=== PATIENT | female | born 1980 | race Hispanic/Latino ===

== ENCOUNTER 2023-11-18 08:20 | Day surgery (SDC) | payer OTHER ==
[~2023-11-18] VITALS: Ht 160 cm; Wt 73.9 kg
[2023-11-18] MEDS ORDERED: SODIUM CHLORIDE 0.9% 10 ML SYR ONE ×2 (08:24→09:03)
[2023-11-18] MEDS ORDERED: MELOXICAM7.5 MG PO (08:40)
[2023-11-18] MEDS ORDERED: PROVERA5 MG PO (08:40)
[2023-11-18] MEDS ORDERED: METHOCARBAMOL500 MG PO (08:41)
[2023-11-18] MEDS ORDERED: TYLENOL # 31 TA1 PO (08:42)
[2023-11-18] MEDS ORDERED: MIDAZOLAM HCL 2 MG/2 ML VIAL ONE (09:03)
[2023-11-18] MEDS ORDERED: LACTATED RINGER'S 1,000 ML IV ONE (09:09)
[2023-11-18] MEDS ORDERED: BUPIVACAINE HCL PF 0.5 % 50 MG/10 ML SDV ONE (09:35)
[2023-11-18] MEDS ORDERED: LIDOCAINE MPF 1% (10 MG/ML) 5 ML VIAL ONE (09:35)
[2023-11-18] MEDS ORDERED: TRIAMCINOLONE ACETONIDE 40 MG/ML ML ONE (09:35)
[2023-11-18 09:50] VITALS: BP 116/85
== END 2023-11-18 10:05 | disposition home or self-care (01) ==
LOC: ORM 08:20
PROVIDERS: ATTEND Student in an Organized Health Care Education/Training Program
DX: M46.1 Sacroiliitis, not elsewhere classified (principal); G89.4 Chronic pain syndrome; M54.9 Dorsalgia, unspecified
CPT/HCPCS: J3301

== ENCOUNTER 2024-06-15 07:38 | Day surgery (SDC) | payer OTHER ==
[~2024-06-15] VITALS: Ht 160 cm; Wt 70.3 kg
[~2024-06-15 07:38] MED LIST: MELOXICAM7.5 MG PO; METHOCARBAMOL500 MG PO; PROVERA5 MG PO; TYLENOL # 31 TA1 PO
[2024-06-15] MEDS ORDERED: SODIUM CHLORIDE 0.9% 10 ML SYR ONE ×2 (07:59→08:29)
[2024-06-15] MEDS ORDERED: BUPIVACAINE HCL PF 0.5 % 50 MG/10 ML SDV ONE (09:25)
[2024-06-15] MEDS ORDERED: LIDOCAINE HCL 1% (10MG/ML) 100 MG/10 ML MDV ONE (09:25)
[2024-06-15 10:13] VITALS: BP 107/41
== END 2024-06-15 09:16 | disposition home or self-care (01) ==
LOC: ORM 07:38
PROVIDERS: ATTEND Student in an Organized Health Care Education/Training Program
DX: M47.816 Spondylosis without myelopathy or radiculopathy, lumbar region (principal); G89.4 Chronic pain syndrome